=== PATIENT | female | born 1995 | race Caucasian/White ===

== ENCOUNTER 2017-05-04 23:40 | Outpatient (CLI) | payer OTHER ==
[~2017-05-04] VITALS: Ht 162.6 cm; Wt 83.9 kg
[2017-05-05 00:19] VITALS: BP 126/60
[2017-05-05 01:16] LABS: ADD MIUA? NO; BILIRUBIN NEGATIVE; BLOOD NEGATIVE; COLOR STRAW ((YELLOW)); GLUCOSE (STRIP) NEGATIVE; KETONES NEGATIVE; LEUKOCYTES NEGATIVE; NITRITE NEGATIVE; PROTEIN (STRIP) NEGATIVE; SPECIFIC GRAVITY 1.008 (1.000-1.030); UCUL ADDED? NO; UROBILINOGEN 0.2 MG/DL (0.2-1.0)
[2017-05-05 01:35] LABS: AMPHETAMINE NEGATIVE (500 ng/mL); BARBITURATES NEGATIVE (200 ng/mL); BENZODIAZEPINES NEGATIVE (150 ng/mL); COCAINE NEGATIVE (150 ng/mL); INTERNAL CONTROLS VALID? YES; METHADONE NEGATIVE (200 ng/mL); METHAMPHETAMINE NEGATIVE (500 ng/mL); OPIATES (MORPHINE) NEGATIVE (100 ng/mL); OXYCODONE NEGATIVE (100 ng/mL); PHENCYCLIDINE NEGATIVE (25 ng/mL); PROPOXYPHENE NEGATIVE (300 ng/mL); THC CANNABINOIDS NEGATIVE (50 ng/mL); TRICYCLIC ANTIDEPRESSANTS NEGATIVE (300 ng/mL)
[2017-05-05 01:58] LABS: BASOPHIL COUNT 0.1 K/uL (0-0.1); EOSINOPHIL (%) 2.5 % (0-5); EOSINOPHIL COUNT 0.4 K/uL (0-0.3); HEMATOCRIT 33.6 % (36.0-46.0); IMMATURE GRANULOCYTE (%) 0.6 % (0.0-0.7); IMMATURE GRANULOCYTE COUNT 0.1 K/uL; INSTRUMENT ABS NEUTROPHIL CT 10.4 K/uL; LYMPHOCYTE COUNT 3.4 K/uL (1.0-2.8); MCH 28.4 PG (29.0-34.0); MCHC 33.3 G/DL (30.0-36.0); MCV 85.1 FL (83-99); MEAN PLAT.VOLUME 10.7 uM^3 (9.5-12.4); MONOCYTE (%) 7.4 % (3-12); MONOCYTE COUNT 1.1 K/uL (0-0.8); NEUTROPHIL COUNT 10.4 K/uL (1.8-6.4); PLATELET COUNT 218 K/uL (156-360); RBC DIS.WIDTH-CV 14.5 % (11.8-14.6); RBC DIS.WIDTH-SD 45.1 % (39-53); RED BLOOD COUNT 3.95 M/uL (3.80-5.20); WHITE BLOOD COUNT 15.5 K/uL (4.1-10.2)
[2017-05-05 02:35] LABS: CANDIDA DNA PROBE NEGATIVE; GARDNERELLA DNA PROBE POSITIVE; INTERNAL CONTROL VALID? YES
[2017-05-05 06:58] VITALS: BP 119/57
[2017-05-05] MEDS ORDERED: PRENATAL TABLE1 EACH PO (07:02)
[2017-05-05] MEDS ORDERED: FLAGYL500 MG PO (08:08)
[2017-05-05 14:37] LABS: CHLAMYDIA TRACHOMATIS NEGATIVE; NEISSERIA GONORRHOEAE NEGATIVE
== END 2017-05-05 08:45 | disposition home or self-care (01) ==
LOC: LDRP-OP 23:40 → 2WEST 23:41
PROVIDERS: Advanced Practice Midwife; Obstetrics & Gynecology
DX: O26.892 Other specified pregnancy related conditions, second trimester (principal); R10.9 Unspecified abdominal pain; Z3A.23 23 weeks gestation of pregnancy
CPT/HCPCS: 59025; 76805; 81003; 82731; 85025; 87086; 87480; 87491; 87510; 87591; 87660; G0378

== ENCOUNTER 2017-08-08 03:56 | Outpatient (CLI) | payer OTHER ==
[~2017-08-08] VITALS: Ht 162.6 cm; Wt 85.5 kg
[~2017-08-08 03:56] MED LIST: FLAGYL500 MG PO; PRENATAL TABLE1 EACH PO
[2017-08-08 04:09] VITALS: BP 121/78
[2017-08-08 05:25] LABS: ADD MIUA? NO; BILIRUBIN NEGATIVE; BLOOD NEGATIVE; COLOR STRAW ((YELLOW)); GLUCOSE (STRIP) NEGATIVE; KETONES NEGATIVE; LEUKOCYTES NEGATIVE; NITRITE NEGATIVE; PROTEIN (STRIP) NEGATIVE; SPECIFIC GRAVITY 1.008 (1.000-1.030); UCUL ADDED? NO; UROBILINOGEN 0.2 MG/DL (0.2-1.0)
[2017-08-08 05:45] LABS: AMPHETAMINE NEGATIVE (500 ng/mL); BARBITURATES NEGATIVE (200 ng/mL); BENZODIAZEPINES NEGATIVE (150 ng/mL); COCAINE NEGATIVE (150 ng/mL); INTERNAL CONTROLS VALID? YES; METHADONE NEGATIVE (200 ng/mL); METHAMPHETAMINE NEGATIVE (500 ng/mL); OPIATES (MORPHINE) NEGATIVE (100 ng/mL); OXYCODONE NEGATIVE (100 ng/mL); PHENCYCLIDINE NEGATIVE (25 ng/mL); PROPOXYPHENE NEGATIVE (300 ng/mL); THC CANNABINOIDS NEGATIVE (50 ng/mL); TRICYCLIC ANTIDEPRESSANTS NEGATIVE (300 ng/mL)
[2017-08-08 06:06] LABS: DRSB INTERNAL CONTROL PASS; PROBE CHECK PASS; SPECIMEN PROCESSING CONTROL PASS
[2017-08-08 06:37] LABS: CANDIDA DNA PROBE NEGATIVE; GARDNERELLA DNA PROBE POSITIVE; INTERNAL CONTROL VALID? YES
[2017-08-08 06:45] VITALS: BP 117/62
[2017-08-09 11:54] LABS: CHLAMYDIA TRACHOMATIS NEGATIVE; NEISSERIA GONORRHOEAE NEGATIVE
== END 2017-08-08 09:01 | disposition home or self-care (01) ==
LOC: LDRP-OP 03:56 → 2WEST 03:57
PROVIDERS: Midwife; Obstetrics & Gynecology
DX: O47.03 False labor before 37 completed weeks of gestation, third trimester (principal); O99.343 Other mental disorders complicating pregnancy, third trimester; F41.9 Anxiety disorder, unspecified; Z3A.36 36 weeks gestation of pregnancy; Z87.891 Personal history of nicotine dependence
CPT/HCPCS: 59025; 81003; 87480; 87491; 87510; 87591; 87653; 87660; G0378; J7120

== ENCOUNTER 2017-08-10 23:41 | Outpatient (CLI) | payer OTHER ==
[2017-08-10 23:58] VITALS: BP 104/55
== END 2017-08-11 01:23 | disposition home or self-care (01) ==
LOC: LDRP-OP 23:41 → 2WEST 23:42 → LDRP-OP 09-07 09:45
DX: O47.03 False labor before 37 completed weeks of gestation, third trimester (principal); Z3A.36 36 weeks gestation of pregnancy
CPT/HCPCS: 59025; G0378

== ENCOUNTER 2017-08-21 01:14 | Outpatient (CLI) | payer OTHER ==
[2017-08-21 01:28] VITALS: BP 106/68
== END 2017-08-21 02:14 | disposition home or self-care (01) ==
LOC: LDRP-OP 01:14 → 2WEST 01:15 → LDRP-OP 10-02 01:28
DX: O47.1 False labor at or after 37 completed weeks of gestation (principal); Z3A.38 38 weeks gestation of pregnancy; Z87.891 Personal history of nicotine dependence
CPT/HCPCS: 59025; G0378

== ENCOUNTER 2017-09-10 01:56 | Inpatient (IN) | payer OTHER ==
[2017-09-10] VITALS (12 sets, daily range): BP systolic 106–143; BP diastolic 56–81
[~2017-09-10] VITALS: Ht 162.6 cm; Wt 88.0 kg
[2017-09-10 03:01] LABS: HEMATOCRIT 30.5 % (36.0-46.0); MCHC 33.4 G/DL (30.0-36.0); MCV 80.7 FL (83-99); MEAN PLAT.VOLUME 11.2 uM^3 (9.5-12.4); PLATELET COUNT 211 K/uL (156-360); RBC DIS.WIDTH-CV 13.8 % (11.8-14.6); RBC DIS.WIDTH-SD 40.2 % (39-53); RED BLOOD COUNT 3.78 M/uL (3.80-5.20)
[2017-09-10 07:11] LABS: AMPHETAMINES QUANT VALUE 0 NG/ML; BARBITUATES QUANT VALUE 0 NG/ML; BENZODIAZEPINES QUANT VALUE 0 NG/ML; BENZODIAZEPINES, URINE SCREEN Negative (200 ng/mL); MARIJUANA QUANT VALUE 0 NG/ML; OPIATES QUANTITATIVE VALUE 0 NG/ML; PHENCYCLIDINE QUANT VALUE 0 NG/ML
[2017-09-10] MEDS ORDERED: IBUPROFEN800 MG PO (09:04)
[2017-09-11 07:26] VITALS: BP 102/62
[2017-09-11 07:32] LABS: BASOPHIL COUNT 0.1 K/uL (0-0.1); EOSINOPHIL (%) 1.4 % (0-5); EOSINOPHIL COUNT 0.2 K/uL (0-0.3); HEMATOCRIT 27.8 % (36.0-46.0); IMMATURE GRANULOCYTE (%) 1.1 % (0.0-0.7); IMMATURE GRANULOCYTE COUNT 0.2 K/uL; INSTRUMENT ABS NEUTROPHIL CT 11.3 K/uL; LYMPHOCYTE COUNT 3.5 K/uL (1.0-2.8); MCH 26.5 PG (29.0-34.0); MCV 82.7 FL (83-99); MONOCYTE (%) 6.4 % (3-12); NEUTROPHIL (%) 69.6 % (45-76); NEUTROPHIL COUNT 11.3 K/uL (1.8-6.4); PLATELET COUNT 188 K/uL (156-360); RBC DIS.WIDTH-CV 14.3 % (11.8-14.6); RBC DIS.WIDTH-SD 42.2 % (39-53); RED BLOOD COUNT 3.36 M/uL (3.80-5.20); WHITE BLOOD COUNT 16.3 K/uL (4.1-10.2)
== END 2017-09-11 13:03 | disposition home or self-care (01) | DRG 775 ==
LOC: LDRP-OP 01:56 → 2WEST 01:57 → LDRP-OP 10-02 02:25
PROVIDERS: Midwife; Nurse Practitioner
PROC: 10E0XZZ Delivery of Products of Conception, External Approach (ICD-10-PCS; principal; 2017-09-10)
DX: O48.0 Post-term pregnancy (principal); O99.334 Smoking (tobacco) complicating childbirth; F17.200 Nicotine dependence, unspecified, uncomplicated; Z3A.41 41 weeks gestation of pregnancy; Z37.0 Single live birth
CPT/HCPCS: 80306 90; 85025; 85027; J0595; J7120